=== PATIENT | male | born 1955 | race Caucasian/White ===

== ENCOUNTER 2024-05-03 10:29 | Emergency (ER) | payer BC, SELFPAY ==
[2024-05-03 10:35] VITALS: BP 183/98
--- NOTE | 2024-05-03 11:00 | ED.GENMED ---
History of Present Illness
<Amee Bridges PA-C - Last Filed: 05/03/24 12:04>
General
Chief Complaint: Skin Surface Trauma
Source: patient
Exam Limitations: none
Time Seen by Provider: 05/03/24 10:59
Nursing documentation reviewed up to this point in time: agreed with
History of Present Illness
History of Present Illness:
68-year-old male with past med history of coronary artery disease, hypertension, hyperlipidemia, takes aspirin presents emergency department today with concerns of a laceration on his right hand. Patient reports that he was cleaning out a new
double end tenoner operator he bought when he turned up under upside down and the blades fell out, cutting his right hand. The plates are not in motion and at the time. Patient endured a laceration to his right pinky and right lateral palm. Patient denies any
numbness or tingling, any pain. Patient denies any other injuries. Patient denies any allergies any medications. He is able to move his hand without difficulty.
Past History
<Amee Bridges PA-C - Last Filed: 05/03/24 12:04>
Past History
ED Past Medical History: CAD, HTN, Hypercholesterolemia and IA
Social History
Personal:
Living: with family
Employment: Employed
Review of Systems
<Amee Bridges PA-C - Last Filed: 05/03/24 12:04>
Review of Systems
All Other Systems: ROS reviewed and negative except as documented in HPI and ROS
Phy Exam
<Amee Bridges PA-C - Last Filed: 05/03/24 12:04>
Physical Exam
Physical Exam:
General: Patient is well appearing and in no acute distress; non-toxic
Skin: Warm and dry, 1 cm laceration on the anterior surface of the right palm, 2 cm curved laceration on the anterior surface of the 5 digit. Normal capillary refill
Head: Normocephalic, atraumatic
Eyes: Sclera non-icteric. EOMs intact.
Cardiac: Regular rate
Peripheral Vascular: 2+ radial and ulnar pulses
Pulm: Normal respiratory effort
Musculoskeletal: FDP FDS testing intact. 5/5 strength in digits, full ROM.
Neuro: CN II-XII intact, no focal neurologic deficits. Sensation intact, good 2 point discrimination.
Psychiatric: Appropriate mood and affect.
Course
<Amee Bridges PA-C - Last Filed: 05/03/24 12:04>
Orders/Labs/Results
Orders:
Orders
05/03/24 11:12
Tetanus/Diphth/Acelpertussis [Adacel] 0.5 ml IM .ONCE ONE
Vital Signs
Initial and Last Documented VS:
Initial Vital Signs
Temp Pulse Resp BP Pulse Ox
98.5 F 109 16 183/98 95
05/03/24 10:35 05/03/24 10:35 05/03/24 10:35 05/03/24 10:35 05/03/24 10:35
Last Documented Vital Signs
Temp Pulse Resp BP Pulse Ox
98.5 F 109 18 183/98 95
05/03/24 10:35 05/03/24 10:35 05/03/24 12:01 05/03/24 10:35 05/03/24 10:35
<Callum Manuel MD - Last Filed: 05/03/24 11:24>
Orders/Labs/Results
Orders:
Orders
05/03/24 11:12
Tetanus/Diphth/Acelpertussis [Adacel] 0.5 ml IM .ONCE ONE
Vital Signs
Initial and Last Documented VS:
Initial Vital Signs
Temp Pulse Resp BP Pulse Ox
98.5 F 109 16 183/98 95
05/03/24 10:35 05/03/24 10:35 11/01/24 10:35 05/03/24 10:35 05/03/24 10:35
Last Documented Vital Signs
Temp Pulse Resp BP Pulse Ox
98.5 F 109 18 183/98 95
05/03/24 10:35 05/03/24 10:35 05/03/24 12:01 05/03/24 10:35 05/03/24 10:35
Procedures
<Amee Bridges PA-C - Last Filed: 05/03/24 12:04>
Laceration Closure
Right Hand:
Status of Wound: clean
Size of Wound in cm: 1
Description of Wound Edges: sharp
Preparation: cleaned with saline
Anesthesia: 1% Lidocaine
Wound exploration: explored to base- no FB
Type of Closure: single layer closure
Skin Closure Material: 4-0 nylon
Number of sutures: 3
Right Fifth Finger:
Status of Wound: clean
Size of Wound in cm: 2.5
Description of Wound Edges: sharp
Preparation: cleaned with saline
Anesthesia: 1% Lidocaine and Digital-Regional
Revision/Debridement: minor revision
Wound exploration: explored to base- no FB
Type of Closure: single layer closure
Skin Closure Material: 4-0 nylon
Number of sutures: 7
<Amee Bridges PA-C - Last Filed: 05/03/24 12:04>
MDM/Problems Addressed
Differential Diagnosis Includes:
Abrasion, laceration, neurovascular injury
MDM/Problems Addressed:
68-year-old male on aspirin presents emergency department today with a laceration of his right palm and right pinky. On exam, he has no tendon involvement, good strength, good sensation, brisk capillary refill. Lacerations were repaired with
sutures, patient tolerated the procedure well. His tetanus was updated. Return precautions discussed, patient stable for discharge.
Chronic conditions affecting care:
Coronary artery disease, hypertension, hyperlipidemia
<Amee Bridges PA-C - Last Filed: 05/03/24 12:04>
*Pulse Oximetry
Patient hypoxic: no
*Critical Care Note
Total Time (30-74mins, 75-104mins- exclusive of procedures): Not Applicable
Data Reviewed
Review of Other/Old Records Reveals: Records (Reviewed previous ER physician documentation from 09/19/2014, patient seen for injury of knee and foot following falling from a ladder) and Discharge Summary (No discharge summaries reviewed [facility])
Source: patient and records
Prescriptions/Medications Considered But Not Given:
n/a
Further Testing Considered But Not Given:
n/a
ED Attending Note
<Amee Bridges PA-C - Last Filed: 05/03/24 12:04>
-
Portions of this chart may have been created with voice recognition software.� Occasional wrong word or��sound alike� substitutions may have occurred due to the inherent limitations of voice recognition software.
<Callum Manuel MD - Last Filed: 05/03/24 11:24>
ED Attending Note
Patient seen and examined by attending physician: Yes
I performed the substantive portion of visit, reviewed & personally made and approve the management plan that is documented in note by myself or ROBERT.: Yes
ED Attending Note:
Laceration right hand on a double end tenoner operator. Laceration tuft of fifth digit. 1 cm laceration palm of the the hand at the distal second metacarpal. Motor or sensory neurovascular intact. Good flexion extension. Sensation intact. No foreign body.
Wounds will be sterilely irrigated sutured tetanus shot.
Discharge Plan
Departure
Patient Disposition: Home (Routine Discharge)
Date of Disposition: 05/03/24
Time of Disposition: 11:49
Patient with high blood pressure during this ER visit?: Yes
Condition: Good
Discharge Problem:
Finger laceration, Laceration of right palm
Instructions: Laceration Repair With Stitches (DC), BLOOD PRESSURE
Prescriptions:
No Action
clopidogrel 75 MG tablet
75 mg PO DAILY
simvastatin 40 MG tablet
40 mg PO HS
Atenolol
25 mg PO DAILY
Aspirin
1 PO DAILY
prednisone 20 MG tablet
40 mg PO DAILY Qty: 5 0RF
Rx Instructions:
Take one tablet daily for 5 days.
hydroxyzine HCl 25 MG tablet
25 mg PO TID Qty: 20 0RF
oxycodone-acetaminophen 5 MG/325 MG tablet
1 tab PO Q4HPRN PRN (Reason: pain) Qty: 20 0RF
Activity Restrictions/Additional Instructions:
Please return to the emergency department to have the stitches removed in 7 to 10 days. Please keep the wound dry for 24 hours. After 24 hours, you can mild soapy water run over the wound, please do not scrub the wound. Should you have purulent
drainage from the wound, increasing pain or redness, fevers or chills, please return to the emergency department.
You can change the dressing once daily. You can apply bacitracin to the wound once daily, you can cover it with a nonadherent pad.
Highly recommend establishing PCP: [facility]
Interventions
Interventions:
*Risk Screen - Suicide Last Done: 05/03/24 10:35
*General Assessment Last Done: 05/03/24 10:35
*Neglect/Abuse Screening Last Done: 05/03/24 10:35
ED-Skin Assessment Last Done: 05/03/24 12:00
Discharge Date and Time
Print Language: FINNISH
[2024-05-03] MEDS: ADACEL 0.5 ML IM (11:49)
== END 2024-05-03 12:05 | disposition home or self-care (01) ==
LOC: EMR 10:29
PROVIDERS: EMERGENCY PHYSICIAN Emergency Medicine
DX: S61.216A Laceration without foreign body of right little finger without damage to nail, initial encounter (principal); S61.411A Laceration without foreign body of right hand, initial encounter; W29.0XXA Contact with powered kitchen appliance, initial encounter; Z23 Encounter for immunization; I25.10 Atherosclerotic heart disease of native coronary artery without angina pectoris; E78.00 Pure hypercholesterolemia, unspecified; I10 Essential (primary) hypertension
CPT/HCPCS: 12002; 90471; 99282; 90715

== ENCOUNTER 2024-05-13 11:26 | Emergency (ER) | payer BC, SELFPAY ==
[2024-05-13 11:27] VITALS: BP 154/92
--- NOTE | 2024-05-13 11:54 | ED.GENMED ---
History of Present Illness
General
Chief Complaint: Wound Check/Suture Removal
Source: patient
Exam Limitations: none
Time Seen by Provider: 05/13/24 11:39
Nursing documentation reviewed up to this point in time: agreed with
History of Present Illness
History of Present Illness:
68-year-old male presenting to the emergency department today for suture removal 10 days after having stitches placed. No complications denies any redness swelling warmth fevers numbness or weakness.
Past History
Past History
ED Past Medical History: CAD, HTN, Hypercholesterolemia and [place]
Social History
Personal:
Living: with family
Employment: Employed
Review of Systems
Review of Systems
Allergies reviewed?: Yes
All Other Systems: ROS reviewed and negative except as documented in HPI and ROS
Phy Exam
Physical Exam
Physical Exam:
GENERAL: Alert , in no apparent distress
EYE: pupils equal and reactive
NECK: Supple, no significant adenopathy.
ENT: o/p clr, mmm.
CARDIAC: Regular rate and rhythm .
LUNGS: Clear breath sounds bilaterally, no acute respiratory distress, no wheezes/rales/rhonchi
ABDOMEN: Soft, without focal tenderness, no r/g, no cvat
NEUROLOGICAL: Alert and oriented, no focal neuro deficits
SKIN: 2 lacerations to the right hand 1 with 3 stitches 1 with 7 stitches appears to be healing well no redness or warmth no tenderness no drainage warm and dry, skin intact.
MUSCULOSKELETAL: No edema, well perfused.
PSYCH: Normal and appropriate interaction.
Course
Vital Signs
Initial and Last Documented VS:
Initial Vital Signs
Temp Pulse Resp BP Pulse Ox
98.8 F 74 16 154/92 98
05/13/24 11:27 05/13/24 11:27 05/13/24 11:27 05/13/24 11:27 05/13/24 11:27
Last Documented Vital Signs
Temp Pulse Resp BP Pulse Ox
98.8 F 74 16 154/92 98
05/13/24 11:27 05/13/24 11:27 05/13/24 11:27 05/13/24 11:27 05/13/24 11:27
Procedures
Other
Indication for procedure:: Suture removal
Procedure completed by: Myself
Consent form signed: No
If no, reason: Emergency procedure
Additional Procedure:
Suture removal of the right hand due to for lacerations 1 with 3 stitches and another with 7 stitches to the right hand 10 days ago. Appears to be healing well removed with tweezers, scissors and Steri-Strips placed on top for further protection
over the next week or so.
MDM/Problems Addressed
MDM/Problems Addressed:
68-year-old male presenting for suture removal. Place 10 days ago. Cleaned and stitches removed. Steri-Strips were placed over top for further protection stable for discharge.
*Critical Care Note
Total Time (30-74mins, 75-104mins- exclusive of procedures): Not Applicable
ED Attending Note
-
Portions of this chart may have been created with voice recognition software.� Occasional wrong word or��sound alike� substitutions may have occurred due to the inherent limitations of voice recognition software.
Discharge Plan
Departure
Patient Disposition: Home (Routine Discharge)
Date of Disposition: 05/13/24
Time of Disposition: 11:58
Patient with high blood pressure during this ER visit?: No
Condition: Good
Covid-19: Not Applicable
Discharge Problem:
Visit for suture removal
Instructions: Stitches Removal
Prescriptions:
No Action
clopidogrel 75 MG tablet
75 mg PO DAILY
simvastatin 40 MG tablet
40 mg PO HS
Atenolol
25 mg PO DAILY
Aspirin
1 PO DAILY
prednisone 20 MG tablet
40 mg PO DAILY Qty: 5 0RF
Rx Instructions:
Take one tablet daily for 5 days.
hydroxyzine HCl 25 MG tablet
25 mg PO TID Qty: 20 0RF
oxycodone-acetaminophen 5 MG/325 MG tablet
1 tab PO Q4HPRN PRN (Reason: pain) Qty: 20 0RF
Activity Restrictions/Additional Instructions:
You came to the emergency department today with concerns of suture removal from your right hand. Please keep the area clean covered and return for any worsening, new or concerning symptoms.
Interventions
Interventions:
*Risk Screen - Suicide Last Done: 05/13/24 11:27
*Neglect/Abuse Screening Last Done: 05/13/24 11:27
Discharge Date and Time
Print Language: UPPER SORBIAN
== END 2024-05-13 12:04 | disposition home or self-care (01) ==
LOC: EMR 11:26
PROVIDERS: EMERGENCY PHYSICIAN Emergency Medicine
DX: S61.411D Laceration without foreign body of right hand, subsequent encounter (principal); X58.XXXD Exposure to other specified factors, subsequent encounter; I25.10 Atherosclerotic heart disease of native coronary artery without angina pectoris; E78.00 Pure hypercholesterolemia, unspecified; I10 Essential (primary) hypertension
CPT/HCPCS: 99282